=== PATIENT | female | born 1980 | race Caucasian/White ===

== ENCOUNTER 2022-01-30 12:56 | Emergency (ER) | payer MEDICAID ==
[~2022-01-30] VITALS: Ht 162.6 cm; Wt 63.6 kg
[2022-01-30 13:24] VITALS: BP 155/72
[2022-01-30 16:22] LABS: CLARITY,URINE SLIGHTLY CLOUDY (Clear); COLOR,URINE YELLOW (Yellow); GLUCOSE, URINE NEGATIVE (Neg); KETONES,URINE 15 mg/dl (Neg); LEUKOCYTE ESTERASE ,URINE NEGATIVE (Neg); NITRITES, URINE NEGATIVE (Neg); OCCULT BLOOD,URINE NEGATIVE (Neg); PH,URINE 5.5 (4.8-8.0); PROTEIN,URINE NEGATIVE (Neg); UROBILINOGEN,URINE 0.2 E.U/dL (0.2-1.0)
[2022-01-30 16:23] LABS: BASOPHILS # (AUTO) 0.1 X10'3 (0-0.2); BASOPHILS % (AUTO) 1.2 % (0-1); EOSINOPHILS % (AUTO) 0.2 % (0-6); HEMATOCRIT 40.3 % (35.0-45.0); HEMOGLOBIN 13.6 g/dl (12.0-16.0); LYMPHOCYTES # (AUTO) 1.6 X10'3 (1.1-4.8); LYMPHOCYTES % (AUTO) 19.9 % (21-51); MEAN CORPUSCULAR HEMOGLOBIN 30.2 PG (27.0-31.0); MEAN CORPUSCULAR HGB CONC 33.7 g/dL (33.0-36.5); MEAN CORPUSCULAR VOLUME 89.7 FL (78-98); MEAN PLATELET VOLUME 7.9 FL (7.4-10.4); MONOCYTES # (AUTO) 0.7 X10'3 (0-0.9); MONOCYTES % (AUTO) 8.7 % (2-12); NEUTROPHILS # (AUTO) 5.6 X10'3 (1.8-7.7); PLATELET COUNT 239 X10'3 (140-440); RED BLOOD COUNT 4.49 X10'6 (4.20-5.60); RED CELL DISTRIBUTION WIDTH 13.8 % (11.5-14.5); WHITE BLOOD COUNT 7.9 X10'3 (4.5-11.0)
[2022-01-30 16:27] LABS: UA COLLECTION TYPE VOIDED
[2022-01-30 16:29] LABS: BACTERIA,URINE 4+ /HPF (Neg); CAL OXALATE CRYSTALS 1+ /HPF (NEGATIVE); MUCUS STRANDS FEW /LPF (Neg); RBC,URINE 0-2 /HPF (0-2); WBC,URINE 0-4 /HPF (0-4)
[2022-01-30 16:30] LABS: SQUAMOUS EPITHELIAL CELL,UR MANY /LPF (FEW)
[2022-01-30 16:37] LABS: ALANINE AMINOTRANSFERASE 35 U/L (12-78); ALBUMIN 3.3 G/DL (3.4-5.0); ALBUMIN/GLOBULIN RATIO 0.8 (1.1-1.5); ALKALINE PHOSPHATASE 58 IU/L (46-116); ANION GAP 5 (8-16); ASPARTATE AMINO TRANSFERASE 17 U/L (10-37); BILIRUBIN,TOTAL 0.2 MG/DL (0.1-1.0); BLOOD UREA NITROGEN 9 MG/DL (7-18); BUN/CREATININE RATIO 13.6 (6.6-38.0); CALCIUM 8.3 MG/DL (8.5-10.1); CHLORIDE 100 MMOL/L (99-107); CREATININE 0.66 MG/DL (0.40-0.90); GLUCOSE 86 MG/DL (70-104); POTASSIUM 3.6 MMOL/L (3.5-5.1); SODIUM 134 MMOL/L (135-145); TOTAL CARBON DIOXIDE 28.6 MMOL/L (24-32); TOTAL PROTEIN 7.3 G/DL (6.4-8.2); eGFR > 90 ML/MIN
[2022-01-30] MEDS ORDERED: PENICILLIN G BENZATHINE 2,400,000 UNIT/4 ML SYRINGE IM ONE (16:55)
[2022-01-30] MEDS ORDERED: CefTRIAXone 500MG IM Kit w/LIDOcaine IM ONE (16:55)
[2022-01-30] MEDS ORDERED: DOXYCYCLINE 100MG CAPSULE PO STA (16:55)
[2022-01-30] MEDS ORDERED: DOXY-1 PO (17:19)
== END 2022-01-30 17:43 | disposition home or self-care (01) ==
LOC: ER 12:56
DX: U07.1 COVID-19 (principal); F17.200 Nicotine dependence, unspecified, uncomplicated; F12.90 Cannabis use, unspecified, uncomplicated; Z20.2 Contact with and (suspected) exposure to infections with a predominantly sexual mode of transmission
CPT/HCPCS: 36415; 71046; 80053; 81001; 85025; 86592; 87491; 87591; 87635; 96372; 99284; C9803; J0561; J0696

== ENCOUNTER → 2023-03-28 | Emergency (ER) | payer MEDICAID ==
[~2023-03-28] VITALS: Ht 162.6 cm; Wt 68.2 kg
[~2023-03-28] MED LIST: HYDROcodone/acetaminophen 10/325mg tab PO ONE; LIDOcaine 1% W/epiNEPHrine 1:100,000 20ml vial IJ ONE; NAPR-56 PO; naproxen 500mg tablet PO ONE
[2023-03-28 19:20] VITALS: BP 116/81; PULSE 91; RESP 18; TEMP 98.3; O2SAT 100
== END | disposition home or self-care (01) ==
LOC: ER 18:55
DX: M71.22 Synovial cyst of popliteal space [Baker], left knee (principal)
CPT/HCPCS: 10160; 99284; J3490; 10060; 99283; A6449

== ENCOUNTER 2024-01-28 21:39 | Emergency (ER) | payer MEDICAID ==
[~2024-01-28] VITALS: Ht 162.6 cm; Wt 70.5 kg
[~2024-01-28 21:39] MED LIST changes: -HYDROcodone/acetaminophen 10/325mg tab PO ONE; -LIDOcaine 1% W/epiNEPHrine 1:100,000 20ml vial IJ ONE; -NAPR-56 PO; +PRED20TA PO; -naproxen 500mg tablet PO ONE
[2024-01-28] MEDS ORDERED: ketorolac trometh. 30mg/ml inj. IM ONE (22:30)
[2024-01-28] MEDS: ketorolac tromethamine 15mg/ml inj. IM ONE (22:43)
[2024-01-28] MEDS: HYDROcodone/acetaminophen 5mg/325mg tablet PO ONE (22:43)
[2024-01-29] MEDS ORDERED: HYDR-3965 PO (00:02)
[2024-01-29 00:24] VITALS: BP 128/70; PULSE 71; RESP 14; TEMP 98.3; O2SAT 99
== END 2024-01-29 00:30 | disposition home or self-care (01) ==
LOC: ER 21:40
DX: S39.82XA Other specified injuries of lower back, initial encounter (principal); F17.200 Nicotine dependence, unspecified, uncomplicated; F12.90 Cannabis use, unspecified, uncomplicated; Z79.52 Long term (current) use of systemic steroids; W18.39XA Other fall on same level, initial encounter; Y93.89 Activity, other specified; Y92.89 Other specified places as the place of occurrence of the external cause; Y99.8 Other external cause status
CPT/HCPCS: 72100; 72170; 96372; 99284; J1885; 99283